=== PATIENT | female | born 1960 | race American Indian/Alaskan Native ===

== ENCOUNTER 2019-01-06 07:45 | Outpatient (CLI) | payer OTHER ==
[2019-01-06] MEDS ORDERED: PROVENTIL IH ONE (08:38)
== END 2019-01-06 07:46 | disposition home or self-care (01) ==
LOC: PF 07:45
PROVIDERS: ATTEND Internal Medicine
DX: J45.909 Unspecified asthma, uncomplicated (principal); C34.90 Malignant neoplasm of unspecified part of unspecified bronchus or lung; I10 Essential (primary) hypertension; M19.90 Unspecified osteoarthritis, unspecified site; E11.9 Type 2 diabetes mellitus without complications
CPT/HCPCS: 94060; 94640; 94729

== ENCOUNTER 2019-01-31 10:24 | Outpatient (CLI) | payer OTHER ==
--- NOTE | 2019-01-31 11:12 | XRay Report ---
BILATERAL SHOULDERS, 3 VIEWS INDICATION: BILATERAL SHOULDER PAIN. COMPARISON: None. IMPRESSION: No acute osseous or soft tissue abnormality. Mild osteoarthritic changes are identifi ed at the acromioclavicular joints, right greater than left. LUMBOSACRAL SPINE, 3 VIEWS INDICATION: BILATERAL SHOULDER PAIN. COMPARISON: None. IMPRESSION: Normal alignment. No significant degenerative disc disease. Mild diffuse facet arthropa thy is evident. The visualized sacrum and SI joints are unremarkable. No acute osseous or soft tissu e abnormality. Signer Name: Danny Rico Jr, MD Signed: 01/31/2019 11:07 AM Workstation Name: [id number]
== END 2019-01-31 10:25 | disposition home or self-care (01) ==
LOC: XRAY 10:24
PROVIDERS: ATTEND Internal Medicine
DX: M19.012 Primary osteoarthritis, left shoulder (principal); M19.011 Primary osteoarthritis, right shoulder
CPT/HCPCS: 72100